=== PATIENT | female | born 1960 | race Two or more races ===

== ENCOUNTER 2017-02-09 08:32 | Emergency (ER) | payer MEDICAID ==
[~2017-02-09] VITALS: Ht 154.9 cm; Wt 86.2 kg
[2017-02-09 08:53] VITALS: BP 136/75
[2017-02-09] MEDS ORDERED: KETOROLAC TROMETH 60MG/2ML VIAL IM ONE (09:15)
== END 2017-02-09 09:41 | disposition home or self-care (01) ==
LOC: ER 08:32
DX: G89.29 Other chronic pain (principal); M54.5 Low back pain
CPT/HCPCS: 96372; 99283; J1885